=== PATIENT | male | born 1975 | race Two or more races ===

== ENCOUNTER 2023-08-18 00:51 | Emergency (ER) | payer SELFPAY ==
[~2023-08-18] VITALS: Ht 167.6 cm; Wt 97.7 kg
[2023-08-18 02:10] LABS: Basophils # (auto) 0.1 10 ^3/uL (0-0.2); Basophils % (auto) 0.4 % (0.0-2.0); Eosinophils # (auto) 0 10 ^3/uL (0-0.8); Eosinophils % (auto) 0.1 % (0.0-7.0); Hematocrit 46.1 % (41.0-53.0); Lymphocytes # (auto) 1.4 10 ^3/uL (0.4-5.4); Lymphocytes % (auto) 11.8 % (10.0-50.0); Mean Corpuscular Hemoglobin 30.3 pg (28.0-32.0); Mean Corpuscular Hgb Conc. 34.6 g/dL (32.0-36.0); Mean Corpuscular Volume 87.5 fL (80.0-100.0); Monocytes # (auto) 0.8 10 ^3/uL (0-1.3); Monocytes % (auto) 6.6 % (0.0-12.0); Neutrophils # (auto) 9.6 10 ^3/uL (1.6-8.6); Neutrophils % (auto) 81.1 % (37.0-80.0); Nucleated Red Blood Cells % 0.6 %; Red Blood Cells 5.27 10^6/uL (4.5-5.90); Red Cell Distribution Width 13.2 % (11.8-14.3); White Blood Cell 11.8 10^3/uL (4.4-10.8)
[2023-08-18 02:32] LABS: Alanine Aminotransferase 19 U/L (7-40); Albumin 4.6 g/dL (3.2-4.8); Alkaline Phosphatase 74 U/L (46-116); Anion Gap 5 (5-15); Aspartate Aminotransferase 21 U/L (13-40); Carbon Dioxide 29 mmol/L (20-30); Chloride 100 mmol/L (98-107); Glucose 149 mg/dL (74-106); Potassium 3.6 mmol/L (3.5-5.1); Sodium 134 mmol/L (136-145)
[2023-08-18 02:33] LABS: BUN/Creatinine Ratio 5.6 (10.0-20.0); Bilirubin, Total 0.7 mg/dL (0.2-1.0); Blood Urea Nitrogen < 5 mg/dL (9-23); Total Protein 7.5 g/dL (5.7-8.2)
[2023-08-18 02:45] LABS: Lipase 35 U/L (12-53)
[2023-08-18] MEDS ORDERED: ONDANSETRON ODT 4 MG TAB PO ONE (03:30)
[2023-08-18] MEDS ORDERED: PANTOPRAZOLE 80 MG in SODIUM CHL 0.9% 100 ML IV ONE (03:30)
[2023-08-18] MEDS ORDERED: HYDROcodone-ACET 5/325MG TAB PO ONE (03:30)
[2023-08-18] MEDS ORDERED: MAALOX PLUS or MAALOX 30 ML PO ONE (03:30)
[2023-08-18 03:45] VITALS: PULSE 57; RESP 16; O2SAT 99
[2023-08-18] MEDS ORDERED: PANTOPRAZOLE 40 MG TAB PO ONE (03:45)
[2023-08-18] MEDS ORDERED: HYDROcodone-ACET 10/325MG TAB PO ONE (06:45)
[2023-08-18] MEDS ORDERED: KETOROLAC TROMETH 60MG/2ML VIAL IM ONE (06:45)
[2023-08-18 08:11] VITALS: BP 168/87; PULSE 54; RESP 18; TEMP 98.2; O2SAT 98
== END 2023-08-18 09:06 | disposition home or self-care (01) ==
LOC: ER 00:51
DX: K80.50 Calculus of bile duct without cholangitis or cholecystitis without obstruction (principal)
CPT/HCPCS: 36415; 74176; 80053; 83690; 83735; 84484; 85025; 93005; 99284; C9113; Q0162